=== PATIENT | male | born 1970 | race Caucasian/White ===

== ENCOUNTER 2016-09-27 22:44 | Emergency (ER) | payer BC, OTHER ==
[~2016-09-27] VITALS: Ht 180.3 cm; Wt 85.4 kg
[2016-09-27 22:47] VITALS: TEMP 36.4; O2SAT 95; Ht 180.3 cm; Wt 85.4 kg
--- NOTE | 2016-09-27 22:58 | EMERGENCY ROOM VISIT NOTE ---
History Report prepared by Sharmaine: Prosper Mulligan Under the Supervision of: Dr. Ba Alberts M.D. First contact with patient: 22:46 Chief Complaint: ALCOHOL OVERDOSE Stated Complaint: ETOH Nursing Triage Summary: Patient arrived [facility] for evaluation of alcohol overdose. Patient was found lying in the dirt outside of [employer] [place]. Patient was out drinking with his nephew and drank too much. Patient is here visiting his kids at [facility] and EMS unable to contact them. Will charge patients phone to call his children. History of Present Illness The patient is a 45 year old male who presents to the Emergency Room via BLS for evaluation of alcohol overdose. The patient was found lying in the dirt outside of [employer] in [facility], [place]. The patient notes that he was just drinking with his kids and nephews and that he drank too much. He denies any pain or trauma at this time. His HPI is limited due to intoxication. Source of History: patient, EMS History Limited By: intoxication Onset: prior to arrival Position: other (global) Note: Denies: pain or trauma Review of Systems The ROS is limited secondary to heavy intoxication. Past Medical & Surgical Medical Problems: (1) No pertinent past medical history Family History No pertinent family history Social History Smoking Status: Never Smoker Alcohol Use: occasionally Occupation Status: employed Current/Historical Medications No Active Prescriptions or Reported Meds Allergies Coded Allergies: No Known Allergies (Unverified , 09/27/16) Physical Exam Vital Signs Date Time Temp Pulse Resp B/P Pulse Ox O2 Delivery O2 Flow Rate FiO2 09/28/16 04:30 116 18 116/74 97 Room Air 09/28/16 02:15 77 18 115/68 96 Room Air 09/27/16 22:47 95 Room Air 09/27/16 22:47 36.4 100 16 140/78 97 Room Air Physical Exam GENERAL: Patient is heavily intoxicated. Somnolent with slurred speech. Smells of alcohol. Well appearing and in no acute distress. HEAD: No evidence of Trauma. AT/NC EYES: Injected conjunctiva. Normal EOM. Pupils equal/reactive. ENT: Mucous membranes moist, no nasal congestion, . NECK: No step-offs, no adenopathy, no meningismus, trachea is midline. LUNGS: No dyspnea. Clear to auscultation and equal bilaterally. No wheeze, no rhonchi. HEART: Regular rate and rhythm. No murmurs, rubs, gallops appreciated. ABDOMEN: Soft, nontender, bowel sounds positive, no masses appreciated, no peritonitis. BACK: No midline tenderness, no CVA tenderness EXTREMITIES: Normal motion all extremities, no cyanosis, no edema. NEUROLOGIC: Intoxicated. Aware of name and history prior to arrival. No acute motor or sensory deficits, no focal weakness, cranial nerves grossly intact. SKIN: No rash, no jaundice, no diaphoresis. Medical Decision & Procedures Laboratory Results 09/27/16 23:22 Test 09/27/16 23:22 Anion Gap 15.0 mmol/L (3-11) Est Creatinine Clear Calc Drug Dose 102.3 ml/min Estimated GFR () 110.0 Estimated GFR (Non- 94.9 BUN/Creatinine Ratio 17.8 (10-20) Calcium Level 8.5 mg/dl (8.5-10.1) Ethyl Alcohol mg/dL 281.0 mg/dl (0-3) Laboratory results as reviewed by me. ED Course 2251: The patient was evaluated in room B4. A complete history and physical exam was performed. 0001: At this time, I went to reevaluate the patient and he was sleep. 0019: The patient was still sleeping at this time. The nursing staff was going to try to wake the patient to call his family so he could be discharged home. 0157: At this time, I reevaluate the patient and he was still sleeping. No family has arrived yet. 0426: Reevaluated the patient. He was awake, alert, and oriented. The patient wants to go home Discussed results and discharge instructions: He verbalized understanding and agreement. The patient is ready for discharge. Medical Decision Differential: Alcohol Intoxication, Drug Intoxication, Electrolyte Abnormality, Trauma, Intracranial Event, Toxicological, Excited Delirium, Serotonin Syndrome , amongst other pathologies entertained. 45 yr old intoxicated male brought in by EMS after being found downtown intoxicated and unable to get in touch with family. Patient with no evidence nor history for trauma. Protecting airway and breathing comfortably throughout ED stay. EtOH positive. Monitored and discharged when awake, alert, oriented and denies any complaints. Impression Primary Impression: Alcohol use with intoxication Scribe Attestation The scribe's documentation has been prepared under my direction and personally reviewed by me in its entirety. I confirm that the note above accurately reflects all work, treatment, procedures, and medical decision making performed by me. Departure Information Dispostion Home / Self-Care Prescriptions No Active Prescriptions or Reported Meds Referrals No Doctor, Assigned (PCP) Forms HOME CARE DOCUMENTATION FORM, IMPORTANT VISIT INFORMATION Patient Instructions Alcohol Intoxication - [facility], My [facility]
[2016-09-27 23:51] LABS: BUN/CREATININE RATIO 17.8 (10-20); CALCIUM 8.5 mg/dl (8.5-10.1); CREATININE 0.95 mg/dl (0.60-1.40); POTASSIUM 3.6 mmol/L (3.5-5.1)
[2016-09-28 04:30] VITALS: BP 116/74; PULSE 116; O2SAT 97
== END 2016-09-28 04:44 | disposition home or self-care (01) ==
LOC: C.EDB 22:47
DX: F10.129 Alcohol abuse with intoxication, unspecified (principal)